=== PATIENT | male | born 1940 | race Caucasian/White ===

== ENCOUNTER → 2016-09-01 | Outpatient (CLI) | payer BC ==
[~2016-09-01] MED LIST: DILT120C99 PO; DILT180C50 PO; HYDR25TA4 PO; LISI40TA PO; METO50TA7 PO; RIVA1TAB4 PO; TRAM-10 PO
--- NOTE | 2016-09-01 11:33 | DIAGNOSTIC IMAGING REPORT ---
RIGHT KNEE 4 VIEWS CLINICAL HISTORY: Chronic right knee pain. Babb's cyst. FINDINGS: AP, lateral, tunnel, and sunrise views of the right knee are compared to study dated 11/04/2014. The skeletal structures are osteopenic. No fracture is seen. There is moderate to advanced tricompartmental degenerative joint space narrowing, greatest in the lateral and patellofemoral compartments. There is bony sclerosis within the lateral compartment. There are large marginal osteophytes and patellar enthesophytes. There is no evidence of osteochondral defect on the tunnel view. Bony overgrowth is seen from the tibial tuberosity. A calcified fabella is incidentally noted. There is a small joint effusion. Soft tissue edema is seen around the knee. Atherosclerotic calcification is observed in the popliteal artery. IMPRESSION: 1. Soft tissue edema and joint effusion. No acute bony abnormality is seen. 2. Osteopenia and arthritic change as above. Electronically signed by: Chuy Granados M.D. 09/01/2016 11:31 AM Dictated Date/Time: 09/01/2016 11:30 AM
== END | disposition home or self-care (01) ==
LOC: C.RDSM 11:18
PROVIDERS: ATTEND Physician Assistant
DX: M25.561 Pain in right knee (principal); M25.461 Effusion, right knee; M85.861 Other specified disorders of bone density and structure, right lower leg

== ENCOUNTER 2016-09-08 04:44 | Emergency (ER) | payer BC ==
[~2016-09-08] VITALS: Ht 177.8 cm; Wt 73.8 kg
[~2016-09-08 04:44] MED LIST changes: -DILT180C50 PO; -TRAM-10 PO
[2016-09-08 04:47] VITALS: TEMP 36.8; Ht 177.8 cm; Wt 73.8 kg
[2016-09-08] MEDS ORDERED: MoRPHine SULFATE 10 MG/ML CARP/VIAL IM STA (05:14)
[2016-09-08] MEDS ORDERED: ONDANSETRON HOME PACK 4MG OD TAB PO ONE (05:15)
[2016-09-08] MEDS ORDERED: ONDANSETRON 4MG OD TAB PO ONE (05:15)
--- NOTE | 2016-09-08 06:41 | EMERGENCY ROOM VISIT NOTE ---
History First contact with patient: 04:56 Chief Complaint: HIP PAIN Stated Complaint: HIP TO FOOT PAIN History of Present Illness The patient is a 76 year old male who presents to the Emergency Room with complaints of right lower back pain that radiates down his leg for the past 2 weeks that is aching, ranging in severity currently 8 out of 10 that is worse with movement and better with rest. No injury to the area. 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 Patient states she's a very active gentleman. He has an appointment today to have his Babb cyst drained by orthopedics again. He is on Xarelto for A. fib. Patient denies chest pain, dyspnea, loss of bowel or bladder control, saddle anesthesia, fever, chills, leg weakness, abdominal pain, IV drug abuse. Review of Systems See HPI for pertinent positives & negatives. A total of 10 systems reviewed and were otherwise negative. Past Medical/Surgical History Medical Problems: (1) Diverticulitis Colon (W/O Ment Of Hemorrhage) (2) Diverticulosis Colon (W/O Ment Of Hemorrhage) (3) Hyperlipidemia Nec/Nos (4) Hypertension Nos Family History GI malignancy Social History Smoking Status: Former Smoker Marital Status: Housing Status: lives with significant other Occupation Status: retired Current/Historical Medications Scheduled Diltiazem Hcl Coated Beads (Diltiazem Cd), 120 MG PO QAM Hydrochlorothiazide (Hctz), 25 MG PO QAM Lisinopril (Zestril), 40 MG PO QAM Metoprolol Succ (Toprol Xl) (Toprol-Xl), 1 TAB PO QPM Rivaroxaban (Xarelto), 1 TAB PO QPM Allergies Coded Allergies: No Known Allergies (Unverified , 06/01/15) Physical Exam Vital Signs Date Time Temp Pulse Resp B/P Pulse Ox O2 Delivery O2 Flow Rate FiO2 09/08/16 05:41 98 18 148/89 96 Room Air 09/08/16 04:47 36.8 75 20 158/94 98 Room Air Physical Exam VITALS: Vitals are noted on the nurse's note and reviewed by myself. Vital signs stable. GENERAL: Pleasant male, in no acute distress, nondiaphoretic, well-developed well-nourished. SKIN: Capillary reflex less than 2 seconds. HEENT: Normocephalic. PERRLA. EOMI. Nares patent. Mucous membranes moist. Neck is supple without nuchal rigidity. HEART: Regular rate and rhythm LUNGS: Clear to auscultation bilaterally without wheezes, rales or rhonchi. No retractions or accessory muscle use. ABDOMEN: Positive bowel sounds x 4. Normal tympanic percussion. Soft, nontender, without masses or organomegaly. Brown sign negative. No guarding or rebound tenderness. MUSCULOSKELETAL: No gross musculoskeletal defects. No pedal edema. No calf tenderness. No thoracic or lumbar tenderness on exam, positive right leg straight leg. NEURO: Patient was alert and oriented to person place and time. Normal sensation to light and sharp touch. Deep tendon reflexes 2+ tell bilaterally. No focal neurological deficits. Medical Decision & Procedures Medications Administered Medications (Trade) Dose Ordered Sig/Cathi Route Start Time Stop Time Status Last Admin Dose Admin Morphine Sulfate (MoRPHine SULFATE INJ) 8 mg NOW STAT IM 09/08/16 05:14 09/08/16 05:16 DC 09/08/16 05:22 8 MG Ondansetron HCl (Zofran Odt) 4 mg ONE ONCE PO 09/08/16 05:15 09/08/16 05:16 DC 09/08/16 05:21 4 MG ED Course Prior records/ancillary studies reviewed. Triage Nursing notes reviewed. Additional history obtained from family. The patient's history was concerning for back pain. Differential diagnosis: Etiologies such as musculoskeletal, disc herniation, fracture, aortic disease, metastatic disease, cord compression, discitis, infection, renal colic, gastrointestinal, acute exacerbation of chronic back pain, sciatica, cauda equina, as well as others were entertained. Physical findings: As above. No focal neurologic findings noted. ER treatment provided: Morphine, Zofran On reassessment the patient felt better. Diagnostics interpreted by me: Imaging studies: CT L SPINE: Acute nondisplaced fracture involving an osteophyte at the left anterolateral aspect of the L5 vertebral body (Series 2, Images 262 - 302). Correlate for history of trauma and associated symptoms in this region. Multilevel degenerative changes of the lumbar spine with varying degrees of spinal canal and neural foraminal narrowing. Spinal canal narrowing is most prominent at L4-L5 where there is at least moderate spinal canal stenosis (Series 3, Image 247). Neural foraminal stenosis is most severe at the right L5-S1 neural foramen with apparent compression of the exiting right L5 nerve root. Correlate for resultant symptoms. 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 Fusion along the anterior aspects of the visualized sacroiliac joints. Radiologist: Ping Leyva MD Study ready at 05:45 and initial results transmitted Consultation to orthopedic spine: I spoke with and states he will see the patient tomorrow. This appears to be consistent with sciatica and nondisplaced L5 vertebral body. Patient was neurovascularly and neurologically intact. He was advised avoid activities that cause pain and to follow-up with orthopedics as scheduled today or here in the ER sooner for severe pain, inability to walk, worsening signs or symptoms or as needed. Patient ambulated out of the ER with his .. The patient's physical examination and detailed history did not reveal any red flags for back pain such as those listed in the differential diagnosis. Therefore advanced diagnostics and consultations were felt to be unwarranted. By the evaluation outlined above emergent etiologies such as aortic disease, metastatic disease, infection, renal colic, gastrointestinal, cord compression, cauda equina, as well as others were deemed relatively unlikely. The pt informed about the findings as listed above. All questions were answered and pleased with the treatment. Return instructions were outlined and the patient was discharged in stable condition. Outpatient prescription management: Ultram Referral: The patient was referred back to orthopedics tomorrow for a recheck of the current condition. Case reviewed with my attending Medical Decision As above Impression Primary Impression: Sciatica of right side Departure Information Dispostion Home / Self-Care Condition GOOD Referrals Enrico Gomez M.D. (PCP) Patient Instructions [facility] Additional Instructions DO NOT drive, drink alcohol, operate machinery, or perform dangerous activities today. You were given medications in the ER that can affect your ability to safely function or operate a vehicle. Ultram 50mg: Take 1-2 pills every four hours for breakthrough pain. Avoid alcohol, operating machinery or dangerous equipment, working on ladders or roofs , DRIVING, or situations where being under the influence may be dangerous. It is recommended to use an [id number] stool softener such as Colace, 100mg twice daily while taking this medication to avoid constipation. Acetaminophen(Tylenol) may be used for fever or pain. Use 1000mg every six hours as needed. Avoid using more than 3000mg in a 24 hour period. This medication can be taken if you need to drive, work, or perform activities which may be dangerous when taking narcotic pain medication. Rest and avoid heavy lifting until your symptoms resolve and then gradually return to full activity. A good rule of thumb is if it hurts your back to perform a certain activity, then it should be avoided until you are healthy again. A heating pad, warm compresses, or a hot shower may help with tight muscles and can be done several times a day as needed. Continue current medications. Return to the ER immediately for any numbness, tingling, severe pain, loss of control of your bowels or bladder, inability to walk, or as needed. Follow up with your orthopedics spine tomorrow, call today at 8:30 AM to make your appointment for a recheck of your current condition. Asked to speak with Radha Hernandez. Call [phone].
[2016-09-08] MEDS ORDERED: TRAM-10 PO (06:42)
--- NOTE | 2016-09-08 06:44 | EMERGENCY ROOM VISIT NOTE ---
ED Visit Note First contact with patient: 04:56 I have personally evaluated and examined this patient. I agree with assessment and plan of Joy Felix PA-C.
[2016-09-08] MEDS ORDERED: TRAMADOL HCL 50 MG HOME PACK PO ONE (06:45)
[2016-09-08] MEDS ORDERED: DILT180C50 PO (06:50)
[2016-09-08 07:10] VITALS: BP 138/79; PULSE 90; O2SAT 97
--- NOTE | 2016-09-08 07:42 | DIAGNOSTIC IMAGING REPORT ---
CT LUMBAR SPINE WITHOUT CT DOSE: 591.10 mGy.cm CLINICAL HISTORY: Low back pain radiating into right lower extremity. TECHNIQUE: Axial images of the lumbar spine were obtained without IV contrast. Sagittal and coronal reconstructions were viewed. COMPARISON STUDY: None. FINDINGS: For purposes of numbering on this exam, the L5-S1 disc space is assigned to axial image 308 of 357. There is mild dextroscoliosis of the lumbar spine. Vertebral body heights are maintained. There is a left L5 pars defect without anterolisthesis. There is an acute nondisplaced fracture through the left anterior osteophyte at the L5 level. There are no additional acute fractures. Central canal is suboptimally assessed by CT. Moderate multilevel degenerative disc disease is present with moderate multilevel facet arthrosis. The central canal is suboptimally assessed but there is moderate to severe central canal stenosis at L4-L5 and moderate central canal stenosis at L3-L4. Multilevel neural foraminal stenosis is most pronounced at the right L5-S1 neural foramen with her severe narrowing. Paravertebral soft tissues are unremarkable. IMPRESSION: 1. Acute nondisplaced fracture through a left anterior osteophyte at the L5 level. 2. Moderate multilevel degenerative disc disease and facet arthrosis. Suboptimal evaluation of the central canal due to CT technique but suspected moderate to severe central canal stenosis at L4-L5 and moderate central canal stenosis at L3-L4. 3. Moderate to severe multilevel neural foraminal stenosis, most pronounced at the right L5-S1 neural foramen. Electronically signed by: Naren Rolle M.D. 09/08/2016 7:41 AM Dictated Date/Time: 09/08/2016 7:36 AM
== END 2016-09-08 07:11 | disposition home or self-care (01) ==
LOC: C.EDB 04:45 → C.EDA 07:11
DX: M54.41 Lumbago with sciatica, right side (principal); E78.5 Hyperlipidemia, unspecified; I10 Essential (primary) hypertension; K57.92 Diverticulitis of intestine, part unspecified, without perforation or abscess without bleeding; Z87.891 Personal history of nicotine dependence

== ENCOUNTER → 2017-01-23 | Outpatient (CLI) | payer BC ==
[~2017-01-23] MED LIST changes: -DILT120C99 PO; +DILT180C50 PO; +TRAM-10 PO
== END | disposition home or self-care (01) ==
LOC: C.MAMM 10:22
PROVIDERS: ATTEND Family Medicine
DX: E78.5 Hyperlipidemia, unspecified (principal); I10 Essential (primary) hypertension